=== PATIENT | female | born 1945 | race Caucasian/White ===

== ENCOUNTER 2016-10-04 23:16 | Inpatient (IN) | payer OTHER, MEDICARE ==
[~2016-10-04] VITALS: Ht 165.1 cm; Wt 64.1 kg
[~2016-10-04 23:16] MED LIST: ALEN35TA24 PO; ALPR.25 PO; ANTICAP6 PO; ASPI81TA82 PO; CALC-187 PO; CARB25TA PO; CO Q100C7 PO; FELO10TA PO; LOMO2.5T PO; LUTE6TAB2 PO; OMEP10CA37 PO; ONDA4 PO; PARO20TA PO; PRAV40TA PO; TAB-TAB PO; VITA-13 PO; VITA10002 PO
[2016-10-05 00:25] VITALS: BP 138/98; PULSE 120; RESP 16; TEMP 97.4; O2SAT 97
[2016-10-05] MEDS ORDERED: LORazepam 0.5 MG TAB age > 65 yrs PO PRN (03:15)
[2016-10-05] MEDS ORDERED: LORazepam 2 MG/ML VIAL - age > 65 yrs IM PRN (03:15)
[2016-10-05] MEDS ORDERED: ALUMINUM/MAGNESIUM/SIMETH 30 ML CUP PO PRN (03:15)
[2016-10-05] MEDS ORDERED: MAGNESIUM HYDROXIDE SUSP 30 ML CUP PO PRN (03:15)
[2016-10-05] MEDS ORDERED: ACETAMINOPHEN 325 MG TAB PO PRN ×2 (03:15→11:45)
[2016-10-05 06:40] VITALS: BP 162/91; PULSE 96; RESP 16; TEMP 97.5
[2016-10-05 08:57] LABS: ANION GAP 7 MEQ/L (5-15); BICARBONATE 28.7 MEQ/L (21.0-32.0); BLOOD UREA NITROGEN 7 MG/DL (7-18); CHLORIDE 106 MEQ/L (98-107); GLOMERULAR FILTRATION RATE 90 ML/MIN (>89); POTASSIUM 3.9 MEQ/L (3.5-5.1); SODIUM (NA) 142 MEQ/L (136-145)
[2016-10-05 09:00] LABS: HDL CHOLESTEROL 68.4 MG/DL (40.0-60.0); LDL CHOLESTEROL 101 MG/DL (0-99)
[2016-10-05 10:06] LABS: HEMOGLOBIN A1b 0.8 %; HEMOGLOBIN Ao 86.7 %; HEMOGLOBIN F 0.8 %; HEMOGLOBIN LA1C 1.8 %; HEMOGLOBIN P3 3.3 %
--- NOTE | 2016-10-05 12:11 | HHI.HP ---
Provisional Diagnosis Admission Date Oct 05, 2016 at 00:25 [place] I. 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 Express and informed consent means consent voluntarily given in writing, by a competent person, after sufficient explanation and disclosure of the subject matter involved to enable the person to make a knowing and willful decision without any element of force, fraud, deceit, duress, or other form of constraint or coercion. This person is 18 years of age or older, is not now known to be incompetent to consent to treatment with a guardian advocate, and does not have a health care surrogate or proxy currently making medical treatment decisions. I have found this person to be one of the following: [x] Competent to provide express and informed consent, as defined above, for voluntary admission to this facility and is competent to provide express and informed consent for treatment. He/she has the consistent capacity to make well reasoned, willful, and knowing decisions concerning his or her medical or mental health treatment. The person fully and consistently understands the purpose of the admission for examination/placement and is fully capable of personally exercising all rights assured [place] Incompetent to provide express and informed consent to voluntary admission, and this is incompetent to provide express and informed consent to treatment. The person must be transferred to involuntary status and a petition for a guardian advocate filed with the Circuit Court. [] Refusing to provide express and informed consent to voluntary admission but is competent to provide express and informed consent for treatment. The person must be discharged or transferred to involuntary status. Form shall be completed within 24 hours of a person's arrival at the receiving facility and filed in the clinical record of each person: 1. Admitted on a voluntary basis 2. Permitted to provide express and informed consent to his/her own treatment 3. Allowed to transfer from involuntary to voluntary status 4. Prior to permitting a person to consent to his or her own treatment after having been previously found incompetent to consent to treatment. History of Present Illness Capacity: Has Capacity HPI Issues a 68 too white female who comes here under Hernandez act from [facility] after being admitted there about 5 days ago in the obtunded state needing intubation to protect airway and to breathe for her. It appears she had inadvertently taken an overdose of her benzodiazepines and perhaps of the medication and also was using large amounts of alcohol. Urine toxicology is positive for benzodiazepines blood alcohol level of 274. She was extubated after a few days. Then transferred here under the Hernandez act shared by the [facility]'s office dated 09/28/16 at 2040 p.m. stating anxiety, apparent suicide attempt, patient ingested unknown amount of diazepam and significant quantity of alcohol. At the present time patient sitting quietly in her room on [address] with her and her daughter along with medical student Adri present throughout session. Patient adamantly denies any suicidal ideation intent or plan with this says she was just upset without ongoing conflict with her neighbor. She had acknowledges but minimizes her alcohol use a she'll drink a few beers occasionally. She attempts rationalization also with staying with her history of UTI and metabolic issues though that perhaps may be the sequelae to alcohol use. In any event patient denies suicidality or homicidality or voices or visions her daughter and concur with that patient denies any prior psychiatric contact hospitalization her psychotropic medication. Though she has been placed on benzodiazepines in the past by her primary care physicians. She denies any detox or rehabilitation legal issues related to drinking or other drug use. She denies any prior physical or sexual abuse. Denies any family history of mental illness or addictions At the present time patient does not meet criteria for involuntary inpatient psychiatric hospitalization irritable I will lift the Hernandez act. We did discuss referral. Daughter who has worked at [facility] verifies that they will make appointment for psychiatric care and counseling both for relationship issues and for substance use. Thus patient will be discharged today with no Rx by me, though the patient does question what she'll do about her "anxiety". She may continue her medical medications as prescribed at home. Thus patient will be discharged today to her family Review of Systems ROS Limitations: Intoxication, Intubated, Altered Mental Status Constitutional: DENIES: Diaphoretic episodes, Fatigue, Fever, Weight gain, Weight loss, Chills, Dizziness, Change in appetite, Night Sweats Endocrine: DENIES: Abnorml menstrual pattern, Heat/cold intolerance, Polydipsia , Polyuria, Polyphagia Eyes: DENIES: Blurred vision, Diplopia, Eye inflammation, Eye pain, Vision loss , Photosensitivity, Double Vision Ears, nose, mouth, throat: DENIES: Tinnitus, Hearing loss, Vertigo, Nasal discharge, Oral lesions, Throat pain, Hoarseness, Ear Pain, Running Nose, Epistaxis, Sinus Pain, Toothache, Odynophagia Respiratory: DENIES: Apneas, Cough, Snoring, Wheezing, Hemoptysis, Sputum production, Shortness of breath Cardiovascular: DENIES: Chest pain, Palpitations, Syncope, Dyspnea on Exertion , PND, Lower Extremity Edema, Orthopnea, Claudication Gastrointestinal: DENIES: Abdominal pain, Black stools, Bloody stools, Constipation, Diarrhea, Nausea, Vomiting, Difficulty Swallowing, Anorexia Genitourinary: DENIES: Abnormal vaginal bleeding, Dysmenorrhea, Dyspareunia, Sexual dysfunction, Urinary frequency, Urinary incontinence, Urgency, Hematuria , Dysuria, Nocturia, Vaginal discharge Musculoskeletal: DENIES: Joint pain, Muscle aches, Stiffness, Joint Swelling, Back pain, Neck pain Integumentary: DENIES: Abnormal pigmentation, Pruritus, Rash, Nail changes, Breast masses, Breast skin changes, Nipple discharge Hematologic/lymphatic: DENIES: Bruising, Lymphadenopathy Immunologic/allergic: DENIES: Eczema, Urticaria Neurologic: DENIES: Abnormal gait, Headache, Localized weakness, Paresthesias, Seizures, Speech Problems, Tremor, Poor Balance Psychiatric: COMPLAINS OF: Anxiety Past Psych History Psychological trauma history Patient denies physical or sexual abuse Violence risk - others (6 mos) Low Violence risk - self (6 mos) Low Substance Abuse History Drugs/Alcohol past 12 months Active alcohol misuse and perhaps benzodiazepine misuse Past Family Social History Coded Allergies: No Known Allergies (Unverified , 01/20/16) Past Medical History Patient medically cleared through [facility] Reported Medications Alprazolam (Xanax 0.25 Mg)Alprazolam 0.25 mg Tab1 Tab PO BID PRN (ANXIETY) 01/20/16 Aspirin (Aspir-81)81 Mg Tab81 Mg PO DAILY 06/21/15 Multiple Vitamins W/ Minerals (Antioxidant) Cap1 Cap PO DAILY 06/21/15 Lutein 6 Mg Tab6 Mg PO DAILY 06/21/15 Cholecalciferol (Vitamin D3)1,000 Unit Tab1,000 Unit PO DAILY 06/21/15 Multiple Vitamin (Multivitamin)1 Tab Tab1 Tab PO DAILY 06/21/15 Coenzyme Q10 (Ubidecarenone) (Co Q10)100 Mg Vuc065 Mg PO DAILY 06/21/15 Calcium Carbonate-Cholecalcife (Calcium 500/Vitamin D3) /Vit D3 Tab1 Tab PO TID 06/21/15 Alendronate Sodium 35 Mg Tab35 Mg PO Q7D 06/03/15 Carbidopa-Levodopa (Sinemet 25/100)25 Mg/100 Mg Tab1 Tab PO TID 06/03/15 Diphenoxylate W/ Atropine (Diphenoxylate/Atropine)2.5 Mg Tab2.5 Mg PO Q6 06/03/15 Pravachol 40 Mg Tab40 Mg PO HS 06/13/11 Felodipine (Felodipine Er)10 Mg Tab10 Mg PO DAILY 06/13/11 Discontinued Reported Medications Cyanocobalamin (Vitamin B12)1,000 Mcg Tab1,000 Mcg PO DAILY 06/21/15 Omeprazole 10 mg (Prilosec 10 mg)10 Mg Cap1 Cap PO DAILY PRN (PRN) 06/21/15 Ondansetron Hcl (Zofran 4 Mg Tab)4 Mg Tab4 Mg PO Q4HR 06/21/15 Paroxetine Hcl (Paroxetine Hcl)20 Mg Tab30 Mg PO DAILY 06/13/11 Current Medications Medications (Trade) Dose Ordered Sig/Scott Route Start Time Stop Time Status Last Admin (Ativan) 0.5 mg Q12H PRN PO 10/05/16 03:15 (Ativan Inj) 0.5 mg Q12H PRN IM 10/05/16 03:15 (Tylenol) 650 mg Q4H PRN PO 10/05/16 03:15 (Milk Of Magnesia Liq) 30 ml DAILY PRN PO 10/05/16 03:15 (Mag-Al Plus Susp Liq) 30 ml Q6H PRN PO 10/05/16 03:15 Family History Patient denies alcohol or substance abuse in the family Social History She lives with her has children who are quite supportive including a daughter that lives nearby. Though they both appear to enjoy their adult beverages Patient's Strengths (min. 2) Patient verbal able axis health care Physical Exam Patient seen screened medically cleared through [facility] exam reviewed and agreed with the signs Vital Signs Vital Signs Date Time Temp Pulse Resp B/P Pulse Ox O2 Delivery O2 Flow Rate FiO2 10/05/16 06:40 97.5 96 16 162/91 10/05/16 00:25 97 Mental Status Examination Alert oriented white female appears stated age sitting quietly in her room with her daughter and medical student Adri. She has good eye contact and is cooperative Appearance Somewhat disheveled Speech: Unremarkable Orientation: x3 Memory: Unremarkable Thought Process: Logical Thought Content: Unremarkable Hallucination Type: None Attention and Concentration: Good Suicidal Ideation: No Previous Suicide Attempts: No Homicidal Ideation: No Previous Homicide Attempts: No Insight: Poor Judgement: Poor Affect: Other (decreased range and intensity) Mood: Euthymic (slightly restricted) Motor Activity: Normal gait Assessment & Plan Problem List: (1) Alcohol use with intoxication ICD Code: F10.929 (2) Adjustment disorder with mixed disturbance of emotions and conduct ICD Code: F43.25 Assessment & Plan Estimated LOS: days patient does not meet Hernandez criteria will lift Hernandez act. Did meet with daughter and patient along with medical student Adri today the all agree the patient is doing well does not meet criteria and wish to take her home. There is some minimization of her alcohol use. Family is aware of this. The will be referred to counseling and psychiatric follow-up. No Rx by me may continue her on schedule medications Discharge Planning See above Request HC Surrog/Guard Advoc?: No Eliel Watts MD Oct 05, 2016 12:11
[2016-10-05 12:12] VITALS: BP 145/74; PULSE 91; RESP 16; TEMP 99; O2SAT 98
--- NOTE | 2016-10-05 12:27 | HHI.DS ---
Psychiatry Discharge Summary Inpatient Psychiatric care?: Yes Advance Directive: No Reason Not Provided: PATIENT DOES NOT HAVE Mental Health AdvanceDirective: No Health Care Proxy: No Admission Admission Date Oct 05, 2016 at 00:25 Admission Diagnosis: (1) Adjustment disorder with mixed disturbance of emotions and conduct ICD Code: F43.25 (2) Alcohol use with intoxication ICD Code: F10.929 Brief History Issues a 68 too white female who comes here under Hernandez act from [facility] after being admitted there about 5 days ago in the obtunded state needing intubation to protect airway and to breathe for her. It appears she had inadvertently taken an overdose of her benzodiazepines and perhaps of the medication and also was using large amounts of alcohol. Urine toxicology is positive for benzodiazepines blood alcohol level of 274. She was extubated after a few days. Then transferred here under the Hernandez act shared by the [facility]'s office dated 09/28/16 at 2040 p.m. stating anxiety, apparent suicide attempt, patient ingested unknown amount of diazepam and significant quantity of alcohol. At the present time patient sitting quietly in her room on [address] with her and her daughter along with medical student Adri present throughout session. Patient adamantly denies any suicidal ideation intent or plan with this says she was just upset without ongoing conflict with her neighbor. She had acknowledges but minimizes her alcohol use a she'll drink a few beers occasionally. She attempts rationalization also with staying with her history of UTI and metabolic issues though that perhaps may be the sequelae to alcohol use. In any event patient denies suicidality or homicidality or voices or visions her daughter and concur with that patient denies any prior psychiatric contact hospitalization her psychotropic medication. Though she has been placed on benzodiazepines in the past by her primary care physicians. She denies any detox or rehabilitation legal issues related to drinking or other drug use. She denies any prior physical or sexual abuse. Denies any family history of mental illness or addictions At the present time patient does not meet criteria for involuntary inpatient psychiatric hospitalization irritable I will lift the Hernandez act. We did discuss referral. Daughter who has worked at [facility] verifies that they will make appointment for psychiatric care and counseling both for relationship issues and for substance use. Thus patient will be discharged today with no Rx by me, though the patient does question what she'll do about her "anxiety". She may continue her medical medications as prescribed at home. Thus patient will be discharged today to her family Tobacco Use In Past 30 Days: No Tobacco Past 30 Days Alcohol Use: 2-4 Times Per Month Hospital Course Please see above note under brief history. Did meet with patient patient's patient's daughter and medical student Pricila, patient does not meet Hernandez criteria will lift Hernandez act allow patient to be discharged her family no Rx by me, may continue on scheduled medications, follow-up with her primary care physician and with outpatient psychiatry and counseling Results Blood Pressure 145 / 74 Vital Signs Date Time Temp Pulse Resp B/P Pulse Ox O2 Delivery O2 Flow Rate FiO2 10/05/16 06:40 97.5 96 16 162/91 10/05/16 00:25 97 At [facility] urine toxicology positive for benzodiazepines blood alcohol level of 274 Laboratory Tests Test 10/05/16 07:41 LDL Cholesterol 101 MG/DL (0-99) HDL Cholesterol 68.4 MG/DL (40.0-60.0) Laboratory Results Test 10/05/16 07:41 Triglycerides Level 107 MG/DL (42-150) Cholesterol Level 191 MG/DL (120-200) LDL Cholesterol 101 MG/DL (0-99) HDL Cholesterol 68.4 MG/DL (40.0-60.0) Summary of Procedures None done Pending results at discharge: No Medications # of Antipsychotic meds at D/C: 0 Approp Antipsych med options 1 - Minimum of three failed multiple trials of monotherapy. 2 - Documented plan to taper to monotherapy due to previous use of multiple meds OR cross-taper in progress at D/C. 3 - Documentation of augmentation of Clozapine. 4 - Justification other than those listed in allowable values 1-3, document here : Discharge Discharge Date: Oct 05, 2016 Discharge Diagnosis: (1) Alcohol use with intoxication Diagnosis: Secondary ICD Code: F10.929 (2) Adjustment disorder with mixed disturbance of emotions and conduct Diagnosis: Principal ICD Code: F43.25 Mental Status Exam at Disch Alert oriented somewhat disheveled white female sitting quietly in her room with daughter and medical student Pricila, with good eye contact, she is normal active, her mood is euthymic somewhat restricted affect showed range intensity. Speech regular within normal limits though no formal thought disorder start her visual hallucinations no delusions noted insight and judgment is fair cognition grossly intact Pt Condition on Discharge: Stable Discharge Disposition: Discharge Home Discharge Instructions Diet Instructions: As Tolerated, No Restrictions Activities you can perform: Regular-No Restrictions Scheduled Appointment: follow-up private psychiatrist, counselor, and PCP Discharge Time > 30 minutes Discharge/Advance Care Plan Health Problems: (1) Alcohol use with intoxication (2) Adjustment disorder with mixed disturbance of emotions and conduct Goals to promote your health * To prevent worsening of your condition and complications * To maintain your health at the optimal level Directions to meet your goals Take your medications as prescribed Follow your dietary instruction Follow activity as directed Keep your appointments as scheduled Take your immunizations and boosters as scheduled If your symptoms worsen call your PCP, if no PCP go to Urgent Care Center or Emergency Room For 25/02 questions related to your inpatient stay or results of tests pending at discharge, please contact Dr. Eliel Watts at Smoking is Dangerous to Your Health. Avoid second hand smoking Eliel Watts MD Oct 05, 2016 12:27
== END 2016-10-05 13:50 | disposition home or self-care (01) | DRG 882 ==
LOC: H250 10-05 00:25
PROVIDERS: ADMIT Psychiatry & Neurology Psychiatry; ATTEND Psychiatry & Neurology Psychiatry
DX: F43.25 Adjustment disorder with mixed disturbance of emotions and conduct (principal); F10.929 Alcohol use, unspecified with intoxication, unspecified
CPT/HCPCS: 80048; 80061; 83036